=== PATIENT | male | born 1970 | race Caucasian/White ===

== ENCOUNTER 2018-08-08 00:44 | Emergency (ER) | payer OTHER ==
[2018-08-08 00:49] VITALS: BP 147/98; PULSE 92; RESP 18; TEMP 97.4
[2018-08-08] MEDS ORDERED: AMOXIC-POT CLAV 875-125MG 1 EACH TAB PO STA (01:11)
[2018-08-08] MEDS ORDERED: AMOXIC-POT CLAV 875MG STARTER 2 EACH TABLET PO STA (01:11)
[2018-08-08] MEDS ORDERED: HYDROcodone/APAP 7.5-325MG 1 EACH TAB PO ONE (01:11)
--- NOTE | 2018-08-08 01:33 | ED ---
General Adult HPI - General Chief complaint: Dental/Oral Stated complaint: Dental Pain Time Seen by Provider: 08/08/18 00:51 Source: patient, RN notes reviewed, old records reviewed Mode of arrival: ambulatory Limitations: no limitations - History of Present Illness Initial comments: 47-year-old male patient with no pertinent past medical history presents to ED with chief complaint of dental pain. Patient reports that he has history of poor dentition, in August has procedure scheduled to have all teeth removed and dentures placed. Patient reports that his front tooth has been causing him pain for approximately one week. Patient denies any constitutional symptoms, denies any fevers chills, nausea vomiting diarrhea. Patient denies any other complai nts at this time. Systemic: Pt denies fatigue, myalgia, fever/chills, rash. Pt denies weakness, night sweats, weight loss. Neuro: Pt denies headache, visual disturbances, syncope or pre-syncope. HEENT: Pt denies ocular discharge or irritation, otalgia, rhinorrhea, pharyngitis or notable lymphadenopathy. Cardiopulmonary: Pt denies chest pain, SOB, heart palpitations, dyspnea on exertion. Abdominal/GI: Pt denies abdominal pain, n/v/d. : Pt denies dysuria, burning w/ urination, frequency/urgency. Denies new onset urinary or bowel incontinence. MSK: Pt denies myalgia, loss of strength or function in extremities. Neuro: Pt denies new onset weakness, paresthesias. - Related Data Previous Rx's Medication Instructions Recorded Amoxicillin/Potassium Clav 1 each PO Q12HR #20 tab 08/08/18 [Augmentin 875-125 Tablet] Allergies Allergy/AdvReac Type Severity Reaction Status Date / Time No Known Allergies Allergy Verified 08/08/18 01:14 Review of Systems ROS Statement: Those systems with pertinent positive or pertinent negative responses have been documented in the HPI. ROS Other: All systems not noted in ROS Statement are negative. Past Medical History Past Medical History: No Reported History History of Any Multi-Drug Resistant Organisms: None Reported Past Surgical History: No Surgical Hx Reported Smoking Status: Current every day smoker Past Alcohol Use History: None Reported Past Drug Use History: None Reported General Exam - General Exam Comments Initial Comments: Constitutional: NAD, AOX3, Pt has pleasant affect. HEENT: NC/AT, trachea midline, neck supple, no lymphadenopathy. Posterior pharynx non erythematous, without exudates. External ears appear normal, without discharge. Mucous membranes moist. Eyes PERRLA, EOM intact. There is no scleral icterus. No pallor noted. Dental exam revealed poor dentition. Patient has multiple caries noted. Ninth tooth has mild erythema around it, no drainable abscess. Cardiopulmonary: RRR, no murmurs, rubs or gallops, no JVD noted. Lungs CTAB in anterior and posterior wright. No peripheral edema. Abdominal exam: Abdomen soft and non-distended. Abdomen non-tender to palpation in all 4 quadrants. Bowel sounds active in LLQ. No hepatosplenomegaly. No ecchymosis Neuro: CN II-XII grossly intact. No nuchal rigidity. MSK: No posterior calf tenderness bilaterally, homans sign negative bilaterally. Posterior tibialis and radial pulse +2 bilaterally. Sensation intact in upper and lower extremities. Full active ROM in upper and lower extremities, 5/5 stregnth. Limitations: no limitations Course Vital Signs 08/08/18 00:45 Temperature 97.4 F L Pulse Rate 92 Respiratory 18 Rate Blood Pressure 147/98 O2 Sat by Pulse 98 Oximetry Medical Decision Making - Medical Decision Making 47-year-old male patient with no pertinent past medical history presents to ED with chief complaint of dental pain. Patient reports that he has history of poor dentition, in August has procedure scheduled to have all teeth removed and dentures placed. Patient reports that his front tooth has been causing him pain for approximately one week. Patient denies any constitutional symptoms, denies any fevers chills, nausea vomiting diarrhea. Patient denies any other complaints at this time. Pt VSS, afebrile. Physical exam revealed: Dental exam revealed poor dentition. Patient has multiple caries noted. Ninth tooth has mild erythema around it, no drainable abscess. Patient administered 1 dose of Augmentin and pain control in the ED. Patient was discharged with by mouth Augmentin. Patient will follow-up with dentist as soon as possible. Patient will return to ER if condition worsens in any way. Patient not driving home. Case discussed with Dr. Pappas. Disposition Clinical Impression: Pain, dental Disposition: HOME SELF-CARE Condition: Stable Instructions (If sedation given, give patient instructions): Dental Caries (ED), Toothache (ED) Additional Instructions: Patient to adhere to previously discussed treatment plan and will take medication(s) as directed. Patient to follow up with PCP in 1-2 days. Patient to return to ED if symptoms do not improve. Take medication as directed. Follow up with primary care provider in 1-2 days. Follow with dentist as soon as possible. Return to ER if condition worsens. Prescriptions: Amoxicillin/Potassium Clav [Augmentin 875-125 Tablet] 1 each PO Q12HR #20 tab Is patient prescribed a controlled substance at d/c from ED?: No Referrals: None,Stated [Primary Care Provider] - 1-2 days
== END 2018-08-08 01:47 | disposition home or self-care (01) ==
LOC: EC 00:44
DX: K08.89 Other specified disorders of teeth and supporting structures (principal); K02.9 Dental caries, unspecified; F17.200 Nicotine dependence, unspecified, uncomplicated
CPT/HCPCS: 99283